=== PATIENT | female | born 1940 | race African-American/Black ===

== ENCOUNTER 2016-11-20 11:44 | Observation (INO) | payer BC, OTHER ==
[~2016-11-20] VITALS: Ht 160 cm; Wt 59.4 kg
--- NOTE | ~2016-11-20 | EKG ---
[address] [address] ELECTROCARDIOGRAM REPORT Name: TAMMI FREGOSO Room #: 409-P [facility]..#: [id number] Admission: 11/20/16 Attend Phys: Patricio Candelario Discharge: Date of : 44 Report #: [id number] THIS REPORT FOR: //name// [facility] ED Test Date: 2016-11-20 Test Time: 11:55:40 Pat Name: TAMMI RICHARDSON GARO Department: Room: 409 Gender: F [employer]otive [employer]: LYDIA : 1940 Requested By: Christy Jerome Order Number: [id number] MD: Alex Tolentino Measurements Intervals [place] Rate: 76 P: 18 ME: 156 QRS: 35 QRSD: 90 T: 64 QT: 365 QTc: 411 Interpretive Statements Sinus rhythm RSR' in V1 or V2, probably normal variant Compared to ECG 10/09/2010 08:43:11 RSR' in V1 or V2 now present Electronically Signed On 11-20-2016 14:27:33 CDT by Alex Tolentino [email or web address] <ELECTRONICALLY SIGNED> By: Alex Tolentino MD 11/20/16 1427 1155 1155 Alex Tolentino MD /EPI
[~2016-11-20 11:44] MED LIST: ACTONEL; ASPIRIN325; LIPITOR; LORTAB 7.5/5001 TA3
[2016-11-20 11:50] VITALS: BP 121/64
[2016-11-20] MEDS ORDERED: AMLODIPINE-BEN1 EAC3 PO (11:51)
[2016-11-20 12:30] LABS: ABSOLUTE NEUTROPHILS 5.3 thou/uL (1.4-8.2); EOSINOPHILS 1.3 % (0.0-3.0); HEMATOCRIT 42.4 % (37.0-47.0); HEMOGLOBIN 14.7 gm/dL (12.0-15.0); LYMPHOCYTES 22.6 % (24.0-44.0); MCH 32.2 pg (26.0-34.0); MCHC 34.6 g/dL (28.0-37.0); MCV 93.2 fL (80.0-100.0); MONOCYTES 8.4 % (1.0-8.0); PLATELET COUNT 333 thou/uL (150-400); POLYS 66.7 % (36.0-66.0); RBC 4.55 mil/uL (4.20-5.00); RDW 12.5 % (10.5-14.5)
[2016-11-20 12:32] LABS: MANUAL DIFF NO
[2016-11-20 12:34] LABS: CALCIUM 9.4 mg/dL (8.5-10.1); CREATININE 1.1 mg/dL (0.6-1.0); POTASSIUM 5.2 mmol/L (3.5-5.1)
[2016-11-20 13:44] VITALS: BP 159/82
[2016-11-20 14:30] VITALS: BP 185/81
[2016-11-20 19:00] VITALS: BP 141/76
[2016-11-21] VITALS: BP 149/80
[2016-11-21 05:28] VITALS: BP 162/80
[2016-11-21 06:14] LABS: CALCIUM 8.6 mg/dL (8.5-10.1); CREATININE 0.9 mg/dL (0.6-1.0); POTASSIUM 4.7 mmol/L (3.5-5.1)
[2016-11-21 06:18] LABS: ALBUMIN 3.7 g/dL (3.4-5.0); PHOSPHORUS 4.4 mg/dL (2.5-4.9)
[2016-11-21 07:42] VITALS: BP 140/86
[2016-11-21 10:23] VITALS: BP 140/86
== END 2016-11-21 10:30 | disposition home or self-care (01) ==
LOC: ER 11:44 → EROBS 13:31 → 4N 13:45
PROVIDERS: Emergency Medicine; Hospitalist
DX: H81.399 Other peripheral vertigo, unspecified ear (principal); R55 Syncope and collapse; H83.09 Labyrinthitis, unspecified ear; E78.5 Hyperlipidemia, unspecified